=== PATIENT | female | born 1960 | race Caucasian/White ===

== ENCOUNTER 2016-11-20 19:09 | Emergency (ER) | payer MEDICAID | END 2016-11-20 23:09 | disposition home or self-care (01) | LOC: ER 19:09 | DX: M79.1 Myalgia (principal); J45.909 Unspecified asthma, uncomplicated | CPT/HCPCS: 71020; 81003; 87804; 87880 ==

== ENCOUNTER 2016-11-25 13:08 | Emergency (ER) | payer MEDICAID ==
[2016-11-25] MEDS ORDERED: OPTIRAY 350 100 ML VIAL HMH IV ONE (13:16)
[2016-11-25] MEDS ORDERED: METHYLPRED SOD SUCC 125 MG/2 ML VIAL ONE (14:40)
[2016-11-25] MEDS ORDERED: SODIUM CHLORIDE 0.9% 1,000 ML ONE (14:40)
[2016-11-25] MEDS ORDERED: FAMOTIDINE 20 MG INJ ONE (14:41)
[2016-11-25] MEDS ORDERED: DUONEB INH ONE ×2 (15:38)
[2016-11-25] MEDS ORDERED: SODIUM CHLORIDE 0.9% 500 ML IV ONE (19:30)
[2016-11-25] MEDS ORDERED: KCL CR 20 MEQ TAB PO ONE (19:30)
[2016-11-25] MEDS ORDERED: POTASSIUM CHLOR 10MEQ -ED ONLY 100 ML IV ONE (19:30)
[2016-11-25] MEDS ORDERED: AMOXICILLIN/CLAV 875 MG TAB PO ONE (22:29)
== END 2016-11-25 22:38 | disposition home or self-care (01) ==
LOC: ER 13:15
DX: J01.90 Acute sinusitis, unspecified (principal)
CPT/HCPCS: 36415; 70491; 71020; 80053; 82553; 83880; 84439; 84443; 84484; 85025; 85379; 93005; 94640; 96361; 96365; 96366; 96375